=== PATIENT | female | born 1970 | race Caucasian/White ===

== ENCOUNTER 2017-05-07 00:21 | Emergency (ER) | payer OTHER ==
[~2017-05-07] VITALS: Ht 167.6 cm; Wt 68.2 kg
--- NOTE | 2017-05-07 00:30 | ERA ---
ER Documentation Chief Complaint Date/Time DATE: 05/07/17 TIME: 00:29 Chief Complaint Agitation HPI The patient is a 46-year-old female, presenting to the ER because of acute agitation from the street. She admitted using illicit drugs but could not tell us what she is using. She is is agitated and unable to provide history Past medical/surgical history/social history/review of system: Unable to obtain due to her condition ROS All systems reviewed and are negative except as per history of present illness. Medications Home Meds Reported Medications Albuterol Sulfate* (Albuterol Sulfate*) Unknown Strength Tablet, 0 PO QID, #120 TAB 05/07/17 Hydrocodone/Acetaminophen ([place] 10-325 Tablet) Unknown Strength Tablet, PO, TAB 05/07/17 Hydrocodone Bit-Acetaminophen* (Vicodin*) Unknown Strength Tab, PO Q4H Y for PAIN, TAB 05/07/17 Clozapine* (Clozaril*) Unknown Strength Tab, PO, TAB 05/07/17 Allergies Allergies: Coded Allergies: bupropion (Verified Allergy, Unknown, 05/07/17) Physical Exam Vitals Vital Signs Date Time Temp Pulse Resp B/P Pulse Ox O2 Delivery O2 Flow Rate FiO2 05/07/17 00:38 98.8 136 141 106/ 100 Physical Exam Const: No acute distress. Head: Atraumatic. Eyes: Normal Conjunctiva. ENT: Normal External Ears, Nose and Mouth. Neck: Full range of motion. No meningismus. Resp: Clear to auscultation bilaterally. Cardio: Regular rate and rhythm. Abd: Soft, non distended, normal bowel sounds, non tender. Skin: No petechiae or rashes. Back: No midline or flank tenderness. Ext: No cyanosis, or edema. Neur: Limited due to her condition Psych: Psychotic, agitated Result Diagram: 05/07/17 0052 05/07/17 0052 Results 24 hrs Laboratory Tests Test 05/07/17 00:52 White Blood Count 13.310^3/ul Red Blood Count 4.7010^6/ul Hemoglobin 12.1g/dl Hematocrit 39.0% Mean Corpuscular Volume 83.0fl Mean Corpuscular Hemoglobin 25.7pg Mean Corpuscular Hemoglobin Concent 31.0g/dl Red Cell Distribution Width 22.4% Platelet Count 26584^3/UL Mean Platelet Volume 9.9fl Neutrophils % 82.9% Lymphocytes % 7.3% Monocytes % 8.6% Eosinophils % 0.7% Basophils % 0.3% Nucleated Red Blood Cells % 0.0/100WBC Neutrophils # 11.010^3/ul Lymphocytes # 1.010^3/ul Monocytes # 1.210^3/ul Eosinophils # 0.110^3/ul Basophils # 0.010^3/ul Nucleated Red Blood Cells # 0.010^3/ul Sodium Level 141mmol/L Potassium Level 4.3mmol/L Chloride Level 103mmol/L Carbon Dioxide Level 27mmol/L Anion Gap 15 Blood Urea Nitrogen 18mg/dl Creatinine 1.02mg/dl Glucose Level 108mg/dl Calcium Level 10.0mg/dl Total Bilirubin 0.5mg/dl Direct Bilirubin 0.00mg/dl Indirect Bilirubin 0.5mg/dl Aspartate Amino Transf (AST/SGOT) 56IU/L Alanine Aminotransferase (ALT/SGPT) 55IU/L Alkaline Phosphatase 61IU/L Total Protein 7.7g/dl Albumin 4.9g/dl Globulin 2.80g/dl Albumin/Globulin Ratio 1.75 Serum HCG, Qualitative NEGATIVE Salicylates Level < 1.0mg/dl Acetaminophen Level < 10.0ug/ml Ethyl Alcohol Level < 10.0mg/dl Procedures/MDM MEDICAL MAKING DECISION: The patient is a 46-year-old female, presenting with acute psychosis. The differential diagnoses considered include but are not limited to drug- induced psychosis, psychosis, decompensated psychiatric illness, substance abuse , anxiety attack, panic attack Departure Diagnosis: Primary Impression: Psychosis Additional Impression: Substance abuse Condition: Stable Comments The telepsychiatrist Dr Neri tries to examine the patient however unsuccessful The patient is awaiting for telepsychiatrist reevaluation The patient's blood pressure was elevated (>120/80) but appears stable without evidence of hypertension emergency or urgency. The patient was counseled about the risks of hypertension and urged to pursue outpatient monitoring and therapy within a week with their primary care physician. SHAMIR VENEGAS MD May 07, 2017 00:29
[2017-05-07 00:38] VITALS: Ht 167.6 cm; Wt 68.2 kg
[2017-05-07 01:07] LABS: ADD SCAN DIFF NO
[2017-05-07 01:08] LABS: ABNORMAL IP MESSAGE 1; BASOPHILS % 0.3 % (0.0-2.0); EOSINOPHILS # 0.1 10^3/ul (0.0-0.5); EOSINOPHILS % 0.7 % (0.0-7.0); HEMOGLOBIN 12.1 g/dl (12.0-16.0); LYMPHOCYTES % 7.3 % (15.0-51.0); MEAN CORPUSCULAR HEMOGLOBIN 25.7 pg (29.0-33.0); MEAN PLATELET VOLUME 9.9 fl (7.4-10.4); MONOCYTE # 1.2 10^3/ul (0.3-0.9); MONOCYTES % 8.6 % (0.0-11.0); NEUTROPHILS % 82.9 % (39.0-77.0); PLATELET COUNT 330 10^3/UL (140-415); RED CELL DISTRIBUTION WIDTH 22.4 % (11.5-14.5); WHITE BLOOD COUNT 13.3 10^3/ul (4.8-10.8)
[2017-05-07 01:25] LABS: ALANINE AMINOTRANSFERASE 55 IU/L (13-69); ALBUMIN 4.9 g/dl (3.3-4.9); ALBUMIN/GLOBULIN RATIO 1.75; ALKALINE PHOSPHATASE 61 IU/L (42-121); ANION GAP 15 (8-16); ASPARTATE AMINO TRANSFERASE 56 IU/L (15-46); BILIRUBIN,INDIRECT 0.5 mg/dl (0-1.1); BILIRUBIN,TOTAL 0.5 mg/dl (0.2-1.3); BLOOD UREA NITROGEN 18 mg/dl (7-20); CARBON DIOXIDE 27 mmol/L (21-31); CHLORIDE 103 mmol/L (97-110); CREATININE 1.02 mg/dl (0.44-1.00); GLUCOSE 108 mg/dl (70-220); POTASSIUM 4.3 mmol/L (3.5-5.1); SODIUM 141 mmol/L (135-144); TOTAL PROTEIN 7.7 g/dl (6.1-8.1)
[2017-05-07 01:28] LABS: ETHANOL < 10.0 mg/dl
[2017-05-07 01:51] LABS: ACETAMINOPHEN < 10.0 ug/ml (10.0-30.0); SALICYLATE < 1.0 mg/dl (5.0-30.0)
[2017-05-07] MEDS ORDERED: HYDR-902 PO (01:52)
[2017-05-07] MEDS ORDERED: ALBU2TAB5 PO (01:52)
[2017-05-07] MEDS ORDERED: CLOZ25TA23 PO (01:52)
[2017-05-07] MEDS ORDERED: HYDR-2086 PO (01:52)
--- NOTE | 2017-05-07 03:34 | PSY ---
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 In the ED the patient has been speaking nonstop, disorganized. Not in behavioral dyscontrol but unable to stop talking, mostly incoherent, severe flight of ideas. Pt is fully unable to participate in any interview. speaks very quickly and constantly, making no clear sense. No organization to her thought process. Pt is unable to report on her hx (med hx, psych hx, allergies, meds) though was asked. MSE: appears stated age, lying in gurney with ekg leads on, speaking constantly , pressured, flight of ideas, disorganized, nearly word salad, keeps pushing away the video monitor, does not respond to questions Imp: 46 yo female agitated, manic unclear if psychotic, likely intoxicated. -cbc, utox, ua, electrolytes, tsh, lfts -would recommend risperidone 1mg po and clonazepam 1mg po prn moderate agitation -for severe agitation haldol 2mg im, ativan 1mg im, cogentin 0.5mg im Allergies: Coded Allergies: bupropion (Verified Allergy, Unknown, 05/07/17) Psychiatric Objective Eval Mental Status Examination: Laboratory Results Laboratory Tests Test 05/07/17 00:52 White Blood Count 13.310^3/ul Red Blood Count 4.7010^6/ul Hemoglobin 12.1g/dl Hematocrit 39.0% Mean Corpuscular Volume 83.0fl Mean Corpuscular Hemoglobin 25.7pg Mean Corpuscular Hemoglobin Concent 31.0g/dl Red Cell Distribution Width 22.4% Platelet Count 41980^3/UL Mean Platelet Volume 9.9fl Neutrophils % 82.9% Lymphocytes % 7.3% Monocytes % 8.6% Eosinophils % 0.7% Basophils % 0.3% Nucleated Red Blood Cells % 0.0/100WBC Neutrophils # 11.010^3/ul Lymphocytes # 1.010^3/ul Monocytes # 1.210^3/ul Eosinophils # 0.110^3/ul Basophils # 0.010^3/ul Nucleated Red Blood Cells # 0.010^3/ul Sodium Level 141mmol/L Potassium Level 4.3mmol/L Chloride Level 103mmol/L Carbon Dioxide Level 27mmol/L Anion Gap 15 Blood Urea Nitrogen 18mg/dl Creatinine 1.02mg/dl Glucose Level 108mg/dl Calcium Level 10.0mg/dl Total Bilirubin 0.5mg/dl Direct Bilirubin 0.00mg/dl Indirect Bilirubin 0.5mg/dl Aspartate Amino Transf (AST/SGOT) 56IU/L Alanine Aminotransferase (ALT/SGPT) 55IU/L Alkaline Phosphatase 61IU/L Total Protein 7.7g/dl Albumin 4.9g/dl Globulin 2.80g/dl Albumin/Globulin Ratio 1.75 Serum HCG, Qualitative NEGATIVE Salicylates Level < 1.0mg/dl Acetaminophen Level < 10.0ug/ml Ethyl Alcohol Level < 10.0mg/dl SAMUEL WISDOM May 07, 2017 03:34
--- NOTE | 2017-05-07 03:38 | PSY ---
Date/Time of Note Date/Time of Note DATE: 05/07/17 TIME: 06:37 Psychiatric Subjective Eval Subjective Evaluation Patient location: emergency Chief Complaint: BIB R88 for meth use 1 hour ago, found in streets History of present illness Addendum to previous note: in this state pt requires 5150 to inpatient psych for severe and grave disability as she would be unable to care for herself in this state. Would also recommend obtaining parallel hx once she is able to give info on psychiatrist, family, or other living situation. Allergies: Coded Allergies: bupropion (Verified Allergy, Unknown, 05/07/17) Psychiatric Objective Eval Mental Status Examination: Laboratory Results Laboratory Tests Test 05/07/17 00:52 White Blood Count 13.310^3/ul Red Blood Count 4.7010^6/ul Hemoglobin 12.1g/dl Hematocrit 39.0% Mean Corpuscular Volume 83.0fl Mean Corpuscular Hemoglobin 25.7pg Mean Corpuscular Hemoglobin Concent 31.0g/dl Red Cell Distribution Width 22.4% Platelet Count 67950^3/UL Mean Platelet Volume 9.9fl Neutrophils % 82.9% Lymphocytes % 7.3% Monocytes % 8.6% Eosinophils % 0.7% Basophils % 0.3% Nucleated Red Blood Cells % 0.0/100WBC Neutrophils # 11.010^3/ul Lymphocytes # 1.010^3/ul Monocytes # 1.210^3/ul Eosinophils # 0.110^3/ul Basophils # 0.010^3/ul Nucleated Red Blood Cells # 0.010^3/ul Sodium Level 141mmol/L Potassium Level 4.3mmol/L Chloride Level 103mmol/L Carbon Dioxide Level 27mmol/L Anion Gap 15 Blood Urea Nitrogen 18mg/dl Creatinine 1.02mg/dl Glucose Level 108mg/dl Calcium Level 10.0mg/dl Total Bilirubin 0.5mg/dl Direct Bilirubin 0.00mg/dl Indirect Bilirubin 0.5mg/dl Aspartate Amino Transf (AST/SGOT) 56IU/L Alanine Aminotransferase (ALT/SGPT) 55IU/L Alkaline Phosphatase 61IU/L Total Protein 7.7g/dl Albumin 4.9g/dl Globulin 2.80g/dl Albumin/Globulin Ratio 1.75 Serum HCG, Qualitative NEGATIVE Salicylates Level < 1.0mg/dl Acetaminophen Level < 10.0ug/ml Ethyl Alcohol Level < 10.0mg/dl SAMUEL WISDOM May 07, 2017 03:38
[2017-05-07 09:11] LABS: ADD UMIC YES; URINE BILIRUBIN (Dip) NEGATIVE (NEGATIVE); URINE BLOOD (Dip) 2+ (NEGATIVE); URINE COLOR YELLOW (YELLOW); URINE GLUCOSE (Dip) NEGATIVE (NEGATIVE); URINE KETONES (Dip) NEGATIVE (NEGATIVE); URINE LEUKOCYTE ESTERASE (Dip) NEGATIVE (NEGATIVE); URINE NITRITE (Dip) NEGATIVE (NEGATIVE); URINE TOTAL PROTEIN (Dip) 1+ (NEGATIVE); URINE UROBILINOGEN (Dip) 0.2 E.U./dL (0.1-1.0)
[2017-05-07 09:27] LABS: BACTERIA,URINE FEW; MUCUS,URINE FEW
[2017-05-07 10:03] LABS: BARBITURATES NEGATIVE (NEGATIVE); BENZODIAZEPINES NEGATIVE (NEGATIVE); CANNABINOIDS NEGATIVE (NEGATIVE); COCAINE NEGATIVE (NEGATIVE); OPIATES NEGATIVE (NEGATIVE)
[2017-05-07] MEDS ORDERED: IBUPROFEN 600 MG TAB PO ONE (11:30)
--- NOTE | 2017-05-07 12:59 | EN ---
Date/Time of Note Date/Time of Note DATE: 05/07/17 TIME: 12:58 ER Progress Note Observation Note: Time: 8 hours Family Hx: Unable to obtain Evaluation: Patient signed out to me by Dr. Lara pending inpatient psychiatric unit placement. Multiple exams showed patient still acutely psychotic. Urine drug screen confirms amphetamine use. She continues to meet criteria for 5150. Patient awaiting evaluation by [facility]. Diagnosis: Acute psychosis, methamphetamine abuse, gravely disabled, danger to self Disposition: transfer to psych facility Condition: Guarded LIZZETH IRBY MD May 07, 2017 12:59
[2017-05-07] MEDS ORDERED: clonAZEPAM 0.5 MG TAB PO ONE (16:30)
[2017-05-07] MEDS: RISPERIDONE 1 MG TAB PO ONE ×2 (16:37→16:39)
[2017-05-07] MEDS ORDERED: DIPHENHYDRAMINE 25 MG CAP PO ONE (17:30)
[2017-05-07 18:36] VITALS: BP 124/76; PULSE 100; RESP 16; TEMP 98.5
== END 2017-05-07 19:02 ==
LOC: E/R 00:21
DX: F29 Unspecified psychosis not due to a substance or known physiological condition (principal); R40.2142 Coma scale, eyes open, spontaneous, at arrival to emergency department; R40.2362 Coma scale, best motor response, obeys commands, at arrival to emergency department; R40.2242 Coma scale, best verbal response, confused conversation, at arrival to emergency department; F15.10 Other stimulant abuse, uncomplicated
CPT/HCPCS: 80053; 80306; 80307; 81001; 84703; 85025; Z7610; 36415

== ENCOUNTER 2017-07-25 22:10 | Emergency (ER) | payer OTHER ==
[~2017-07-25] VITALS: Ht 152.4 cm; Wt 54.5 kg
[~2017-07-25 22:10] MED LIST: ALBU2TAB5 PO; CLOZ25TA23 PO; HYDR-2086 PO; HYDR-902 PO
[2017-07-25 23:18] VITALS: Ht 152.4 cm; Wt 54.5 kg
[2017-07-26] MEDS ORDERED: SOD CHLORIDE 0.9% 500 ML IV STA (00:33)
[2017-07-26] MEDS ORDERED: ONDANSETRON 4 MG INJ IV STA (00:33)
[2017-07-26] MEDS ORDERED: morphine 4 MG/ML VIAL IV STA (00:33)
[2017-07-26 01:35] VITALS: TEMP 98.2
[2017-07-26 01:44] LABS: ABNORMAL IP MESSAGE 1; BASOPHIL # 0.1 10^3/ul (0.0-0.1); BASOPHILS % 0.9 % (0.0-2.0); EOSINOPHILS # 0.4 10^3/ul (0.0-0.5); EOSINOPHILS % 6.5 % (0.0-7.0); HEMATOCRIT 26.1 % (37.0-47.0); LYMPHOCYTES # 1.7 10^3/ul (0.8-2.9); LYMPHOCYTES % 26.5 % (15.0-51.0); MEAN CORPUSCULAR HEMOGLOBIN 22.8 pg (29.0-33.0); MEAN CORPUSCULAR HGB CONC 30.7 g/dl (32.0-37.0); MEAN CORPUSCULAR VOLUME 74.4 fl (82.0-101.0); MONOCYTE # 0.6 10^3/ul (0.3-0.9); MONOCYTES % 9.2 % (0.0-11.0); NEUTROPHILS % 56.6 % (39.0-77.0); PLATELET COUNT 356 10^3/UL (140-415); RED BLOOD COUNT 3.51 10^6/ul (4.20-5.40); RED CELL DISTRIBUTION WIDTH 23.4 % (11.5-14.5); WHITE BLOOD COUNT 6.5 10^3/ul (4.8-10.8)
[2017-07-26 01:55] LABS: POSITIVE DIFF @See below
[2017-07-26 02:00] LABS: ALBUMIN 3.7 g/dl (3.3-4.9); ALBUMIN/GLOBULIN RATIO 1.27; BILIRUBIN,INDIRECT 0.2 mg/dl (0-1.1); BILIRUBIN,TOTAL 0.2 mg/dl (0.2-1.3); CALCIUM 8.7 mg/dl (8.4-10.2); CREATININE 0.81 mg/dl (0.44-1.00); POTASSIUM 3.2 mmol/L (3.5-5.1); TOTAL PROTEIN 6.6 g/dl (6.1-8.1)
[2017-07-26 05:10] LABS: ADD UMIC NO; UR ASCORBIC ACID NEGATIVE (NEGATIVE); UR BACTERIA FEW /HPF (NONE SEEN); UR BILIRUBIN (Dip) NEGATIVE (NEGATIVE); UR BLOOD (Dip) NEGATIVE (NEGATIVE); UR CLARITY SLIGHTLY CLOUDY (CLEAR); UR COLOR YELLOW (YELLOW); UR GLUCOSE (Dip) 1+ mg/dL (NEGATIVE); UR KETONES (Dip) NEGATIVE (NEGATIVE); UR LEUKOCYTE ESTERASE (Dip) NEGATIVE Leu/ul (NEGATIVE); UR MUCUS FEW /HPF (NONE SEEN); UR NITRITE (Dip) NEGATIVE (NEGATIVE); UR RBC 4 /HPF (0-5); UR TOTAL PROTEIN (Dip) NEGATIVE (NEGATIVE); UR UROBILINOGEN (Dip) NEGATIVE (NEGATIVE)
--- NOTE | 2017-07-26 05:32 | ERD ---
ER Documentation Chief Complaint Date/Time DATE: 07/26/17 TIME: 05:31 Chief Complaint ABDOMINAL PAIN HPI 38-year-old female complains of colicky abdominal pain diffuse in location over the past 2 days. No nausea no vomiting no fevers no chills. Pain mild to moderate intensity. No dysuria. No other current complaints. ROS All systems reviewed and are negative except as per history of present illness. Medications Home Meds Reported Medications Albuterol Sulfate* (Albuterol Sulfate*) Unknown Strength Tablet, 0 PO QID, #120 TAB 05/07/17 Hydrocodone/Acetaminophen ([place] 10-325 Tablet) Unknown Strength Tablet, PO, TAB 05/07/17 Hydrocodone Bit-Acetaminophen* (Vicodin*) Unknown Strength Tab, PO Q4H Y for PAIN, TAB 05/07/17 Clozapine* (Clozaril*) Unknown Strength Tab, PO, TAB 05/07/17 Allergies Allergies: Coded Allergies: risperidone (Verified Allergy, Intermediate, GENERALIZED RASH, 05/07/17) bupropion (Verified Allergy, Unknown, 05/07/17) PMhx/Soc History of Surgery: No Hx Neurological Disorder: No Hx Respiratory Disorders: Yes (ASTHMA) Hx Cardiac Disorders: No Hx Psychiatric Problems: Yes (SCHITZOPHRENIA) Hx Miscellaneous Medical Probl: Yes (UTERINE FIBROID) Hx Alcohol Use: No ([place]) Hx Substance Use: Yes ([employer]DER) Hx Tobacco Use: No ([place]) Smoking Status: Current every day smoker Physical Exam Vitals Vital Signs Date Time Temp Pulse Resp B/P Pulse Ox O2 Delivery O2 Flow Rate FiO2 07/26/17 01:35 98.2 89 17 156/91 100 Room Air 07/25/17 23:18 98.2 63 17 147/92 100 Physical Exam Const: [] Head: Atraumatic Eyes: Normal Conjunctiva ENT: Normal External Ears, Nose and Mouth. Neck: Full range of motion..~ No meningismus. Resp: Clear to auscultation bilaterally Cardio: Regular rate and rhythm, no murmurs Abd: Soft, non tender, non distended. Normal bowel sounds Skin: No petechiae or rashes Back: No midline or flank tenderness Ext: No cyanosis, or edema Neur: Awake and alert Psych: Normal Mood and Affect Result Diagram: 07/26/1711407/26/17114 Results 24 hrs Laboratory Tests Test 07/26/17 01:15 07/26/17 04:05 White Blood Count 6.510^3/ul Red Blood Count 3.5110^6/ul Hemoglobin 8.0g/dl Hematocrit 26.1% Mean Corpuscular Volume 74.4fl Mean Corpuscular Hemoglobin 22.8pg Mean Corpuscular Hemoglobin Concent 30.7g/dl Red Cell Distribution Width 23.4% Platelet Count 42752^3/UL Mean Platelet Volume 10.0fl Neutrophils % 56.6% Lymphocytes % 26.5% Monocytes % 9.2% Eosinophils % 6.5% Basophils % 0.9% Nucleated Red Blood Cells % 0.0/100WBC Neutrophils # (Manual) 3.710^3/ul Lymphocytes # 1.710^3/ul Monocytes # 0.610^3/ul Eosinophils # 0.410^3/ul Basophils # 0.110^3/ul Nucleated Red Blood Cells # 0.010^3/ul Sodium Level 146mmol/L Potassium Level 3.2mmol/L Chloride Level 101mmol/L Carbon Dioxide Level 31mmol/L Anion Gap 17 Blood Urea Nitrogen 15mg/dl Creatinine 0.81mg/dl Glucose Level 91mg/dl Calcium Level 8.7mg/dl Total Bilirubin 0.2mg/dl Direct Bilirubin 0.00mg/dl Indirect Bilirubin 0.2mg/dl Aspartate Amino Transf (AST/SGOT) 22IU/L Alanine Aminotransferase (ALT/SGPT) 34IU/L Alkaline Phosphatase 55IU/L Total Protein 6.6g/dl Albumin 3.7g/dl Globulin 2.90g/dl Albumin/Globulin Ratio 1.27 Lipase 60U/L Urine Color YELLOW Urine Clarity SLIGHTLY CLOUDY Urine pH 6.0 Urine Specific [place] 1.020 Urine Ketones NEGATIVEmg/dL Urine Nitrite NEGATIVEmg/dL Urine Bilirubin NEGATIVEmg/dL Urine Urobilinogen NEGATIVEmg/dL Urine Leukocyte Esterase NEGATIVELeu/ul Urine Microscopic RBC 4/HPF Urine Microscopic WBC 2/HPF Urine Bacteria FEW/HPF Urine Mucus FEW/HPF Urine Hemoglobin NEGATIVEmg/dL Urine Glucose 1+mg/dL Urine Total Protein NEGATIVEmg/dl Current Medications Medications (Trade) Dose Ordered Sig/Delon Route PRN Reason Start Time Stop Time Status Last Admin Dose Admin Sodium Chloride (NS) 500 ml @ 500 mls/hr Q1H STAT IV 07/26/17 00:33 07/26/17 01:32 DC 07/26/17 01:19 Morphine Sulfate (morphine) 4 mg ONCE STAT IV 07/26/17 00:33 07/26/17 00:34 DC 07/26/17 01:19 Ondansetron HCl (Zofran Inj) 4 mg ONCE STAT IV 07/26/17 00:33 07/26/17 00:34 DC 07/26/17 01:19 Procedures/MDM CBC: [no e/o of systemic infection or severe anemia] CMP: [no e/o severe acidosis, alkalosis, renal failure, diabetic ketoacidosis, liver disease] Lipase: [no e/o pancreatitis] PT/INR: [normal coagulation] Urine: [no e/o acute infection or hematuria] Medical decision-makin-year-old female with undifferentiated abdominal pain that is since resolved. Patient rested comfortably after serial abdominal exams are negative. Will be discharged home with trial of outpatient management. Follow-up in 8 hours and for serial abdominal exams Departure Diagnosis: Primary Impression: Abdominal pain Abdominal location: unspecified location Qualified Code: R10.9 - Abdominal pain, unspecified abdominal location Condition: Stable DAVID GONZÁLES Jul 26, 2017 05:32
[2017-07-26] MEDS ORDERED: HYDR-902 PO (05:36)
[2017-07-26] MEDS ORDERED: ONDA4TAB14 PO (05:36)
[2017-07-26 06:11] VITALS: BP 158/97; PULSE 99; RESP 20
== END 2017-07-26 06:11 | disposition home or self-care (01) ==
LOC: E/R 22:10
DX: R10.84 Generalized abdominal pain (principal); J45.909 Unspecified asthma, uncomplicated; F17.210 Nicotine dependence, cigarettes, uncomplicated
CPT/HCPCS: 36415; 80053; 81001; 83690; 85025; 87086; 96374; 96375; J2270; J2405; J7040; Z7502; 81003